=== PATIENT | male | born 1995 | race Caucasian/White ===

== ENCOUNTER 2017-04-25 17:41 | Emergency (ER) | payer OTHER ==
[~2017-04-25] VITALS: Ht 165.1 cm; Wt 96.6 kg
[2017-04-25 17:51] VITALS: BP 143/89; Ht 165.1 cm; Wt 96.6 kg
== END 2017-04-25 20:01 | disposition home or self-care (01) ==
LOC: ED 17:41
DX: S46.912A Strain of unspecified muscle, fascia and tendon at shoulder and upper arm level, left arm, initial encounter (principal); M43.6 Torticollis; J45.909 Unspecified asthma, uncomplicated; X58.XXXA Exposure to other specified factors, initial encounter; Y93.89 Activity, other specified; Y92.89 Other specified places as the place of occurrence of the external cause; Y99.8 Other external cause status
CPT/HCPCS: J1100; J1885

== ENCOUNTER 2017-04-26 12:07 | Emergency (ER) | payer OTHER ==
[~2017-04-26] VITALS: Ht 162.6 cm; Wt 96.6 kg
[2017-04-26 12:25] VITALS: BP 114/66; Ht 162.6 cm; Wt 96.6 kg
== END 2017-04-26 13:15 | disposition home or self-care (01) ==
LOC: ED 12:07
DX: S16.1XXA Strain of muscle, fascia and tendon at neck level, initial encounter (principal); J45.909 Unspecified asthma, uncomplicated; X58.XXXA Exposure to other specified factors, initial encounter; Y93.89 Activity, other specified; Y99.8 Other external cause status; Y92.89 Other specified places as the place of occurrence of the external cause